=== PATIENT | male | born 1975 | race Caucasian/White ===

== ENCOUNTER 2016-08-21 15:11 | Emergency (ER) | payer OTHER ==
[~2016-08-21] VITALS: Ht 185.4 cm; Wt 83.9 kg
[2016-08-21 15:20] VITALS: BP 146/84
--- NOTE | 2016-08-21 15:45 | ED UPPER/LOWER EXTREMITY COMPL ---
History of Present Illness General Chief Complaint: Hand or Wrist Injury Stated Complaint: "I HURT MY LEFT HAND" Source: patient Exam Limitations: no limitations Vital Signs & Intake/Output Vital Signs & Intake/Output Vital Signs Date Time Temp Pulse Resp B/P Pulse O2 O2 Flow FiO2 Ox Delivery Rate 08/21 1520 97.6 97 16 146/84 97 Room Air Allergies Coded Allergies: No Known Allergies (08/21/16) Reconcile Medications Naproxen Sodium (Aleve) 220 MG CAPSULE 2 TAB PO ONCE PAIN (Reported) Triage Note: PT STATES SHE WAS PLAYING WITH HIS SON CAUGHT HIS LEFT RING FINGER ON THE CARPET AND STATES HIS FINGER BENT TO THE SIDE. Triage Nurses Notes Reviewed? yes Onset: Abrupt Duration: constant Timing: single episode today Severity: moderate Severity Numbers: 5 HPI: Patient is a 41-year-old male who presents emergency nail 2 hours prior to arrival while playing with his son he actually struck the carpet in which he states that he bent his left fourth digit of his finger sideways resulting in pain and localized to the left dorsal aspect of his hand. Patient took Aleve prior to arrival with relief of symptoms. Denies any wrist pain or elbow pain. Patient is right arm dominant. Skin is intact. Past History Travel History Traveled to [place] past 21 day No Medical History Any Pertinent Medical History? none Surgical History Surgical History: non-contributory Psychosocial History What is your primary language Uzbek Tobacco Use: Never used ETOH Use: occasional use Illicit Drug Use: denies illicit drug use Family History Hx Contributory? No Review of Systems Review of Systems Constitutional: Reports: no symptoms. EENTM: Reports: no symptoms. Respiratory: Reports: no symptoms. Cardiovascular: Reports: no symptoms. Gastrointestinal/Abdominal: Reports: no symptoms. Genitourinary: Reports: no symptoms. Musculoskeletal: Reports: see HPI. Skin: Reports: no symptoms. Neurological/Psychological: Reports: no symptoms. Hematologic/Endocrine: Reports: no symptoms. Immunological: Reports: no symptoms. All Other Systems: Reviewed and Negative Physical Exam Physical Exam General Appearance: no apparent distress, alert, comfortable Neurologic/Tendon: normal sensation, normal motor functions, normal tendon functions, responds to pain Skin: intact, normal color, warm/dry Comments: Well-developed well-nourished no apparent distress. HEENT: Atraumatic, extraocular motion intact Neck: Supple, no lymphadenopathy Back: Nontender Respiratory: No respiratory distress Extremities: Left wrist nontender full active range of motion Left phalange digits 1 through 5 full active range of motion nontender Neuro: Alert and oriented x3 Psych: Mood affect normal, normal memory normal judgment. Diagram Hands Back 1) Noted moderate swelling and point tenderness Progress Differential Diagnosis: arterial insufficiency, compartment syndrome, contusion, dislocation, DVT, fracture, gout, septic arthritis, sprain, tendon injury Plan of Care: Orders Procedure Date/time Status XRY-HAND, 3 View LEFT 08/21 1520 Active Discussed x-ray findings with patient and which he receives CD copy. Ulnar gutter splint was applied to left hand by me. Pre-and post-neurovascular was intact. (SAMARA BAILEY,IDANIA) Diagnostic Imaging: Viewed by Me: Radiology Read. Radiology Impression: fracture Comments: PATIENT: OSIEL VELÁSQUEZ PRESENT AGE: 41 PATIENT ACCOUNT NO: [id number] : 73 LOCATION: [facility] ORDERING PHYSICIAN: IDANIA BAILEY SERVICE DATE: 08/21/16-1520 EXAM TYPE: RAD - XRY-HAND, LEFT EXAMINATION: XR HAND, LEFT CLINICAL INFORMATION: Pain and swelling in the hand after injury. Evaluate for fracture. COMPARISON: None TECHNIQUE: AP, lateral, and oblique views of the left hand. FINDINGS: There is an oblique nondisplaced fracture of the mid shaft of the fourth metacarpal bone. Remainder of the bony structures unremarkable. No radiopaque foreign body or significant degenerative change. No soft tissue calcification. IMPRESSION: Oblique nondisplaced fracture of the fourth metacarpal bone. Departure Departure Disposition: HOME OR SELF CARE Condition: Stable Clinical Impression Primary Impression: Fracture of fourth metacarpal bone of left hand Referrals: PATIENT HAS NO PRIMARY CARE DR (PCP/Family) DARYN ARCE MD Additional Instructions: As discussed on Monday please follow-up with your orthopedic doctor or follow- up with orthopedic Dr. Arce for further evaluation treatment. Begin and continue [id number] NSAIDs such as Aleve for pain and inflammation as directed. Continue to leave the splint on the has been applied to the emergency room and all Times until you follow up with orthopedic doctor. Please provide the orthopedic doctor with the CD image of your hand for follow-up. If symptoms worsen return to emergency room Departure Forms: Customer Survey General Discharge Information Procedures Splinting Location: LEFT HAND Hand-Made Type: orthoglass Splint: ULNAR GUTTER Splint Applied By: splint applied by other Pre-Proc Neuro Vasc Exam: normal Post-Proc Neuro Vasc Exam: normal
--- NOTE | 2016-08-21 16:02 | RADIOLOGY REPORT ---
EXAMINATION: XR HAND, LEFT CLINICAL INFORMATION: Pain and swelling in the hand after injury. Evaluate for fracture. COMPARISON: None TECHNIQUE: AP, lateral, and oblique views of the left hand. FINDINGS: There is an oblique nondisplaced fracture of the mid shaft of the fourth metacarpal bone. Remainder of the bony structures unremarkable. No radiopaque foreign body or significant degenerative change. No soft tissue calcification. IMPRESSION: Oblique nondisplaced fracture of the fourth metacarpal bone.
[2016-08-21] MEDS ORDERED: ALEVE220 M1 PO (16:40)
== END 2016-08-21 16:42 ==
LOC: ERH 15:11
DX: S62.325A Displaced fracture of shaft of fourth metacarpal bone, left hand, initial encounter for closed fracture (principal); X58.XXXA Exposure to other specified factors, initial encounter
CPT/HCPCS: 73130-LT